=== PATIENT | female | born 1930 | race Caucasian/White ===

== ENCOUNTER 2018-05-14 09:06 | Inpatient (IN) | payer OTHER ==
[~2018-05-14] VITALS: Ht 165.1 cm; Wt 72.3 kg
[~2018-05-14 09:06] MED LIST: A/B OTIC15 ML; ACTOS PO; AMARYL4 MG PO; AMITRIPTYLINE PO; ASPIR 8181 MG PO; CLINDAMYCIN HC300 MG PO; GLIPIZIDE PO; IBUPROFEN400 MG PO; LAC PO; LEVAQUIN750 MG PO; LIPIZIDE PO; LISINOPRIL PO; LYRICA50 M1 PO; MECLIZINE25 M3 PO; METFORMIN HCL1000 MG PO; METFORMIN PO; METFORMIN500 MG PO; MOTRIN PO; ROBL PO; ZESTRIL5 MG PO; ZOCOR10 MG PO
[2018-05-14 09:57] LABS: BASOPHIL % 0.7 % (0-2); PLATELET COUNT 255 x10^3mcL (130-400)
[2018-05-14 09:59] LABS: RED CELL DISTRIBUTION WIDTH 14.8 % (11.5-14.5)
[2018-05-14 10:03] LABS: CALCIUM 9.3 mg/dL (8.5-10.1); CHLORIDE SERUM 104 mmol/L (98-107); CREATININE SERUM 1.1 mg/dL (0.6-1.0); GLUCOSE SERUM 179 mg/dL (74-106); POTASSIUM SERUM 4.6 mmol/L (3.5-5.1); SODIUM SERUM 137 mmol/L (136-145)
[2018-05-14 10:08] LABS: ALBUMIN 3.6 g/dL (3.4-5.0); ALKALINE PHOSPHATASE 98 U/L (46-116); ALT/SGPT 16 U/L (14-59); AST/SGOT 13 U/L (15-37); BILIRUBIN TOTAL 0.3 mg/dL (0.20-1.00); TOTAL PROTEIN, SERUM 7.8 g/dL (6.4-8.2)
[2018-05-14] MEDS ORDERED: GABAPENTIN100 M2 PO (10:50)
[2018-05-14] MEDS ORDERED: D3-50001 TAB PO (10:51)
[2018-05-14] MEDS ORDERED: LANTUS SOLOS100 U/M1 SQ (10:51)
[2018-05-14 14:03] VITALS: BP 130/55
[2018-05-14 17:30] VITALS: BP 143/53
[2018-05-14 22:27] VITALS: BP 127/90
[2018-05-15 05:49] VITALS: BP 115/45
[2018-05-15 07:19] LABS: CALCIUM 8.9 mg/dL (8.5-10.1); CARBON DIOXIDE 28.8 mmol/L (21-32); CHLORIDE SERUM 102 mmol/L (98-107); CREATININE SERUM 1.2 mg/dL (0.6-1.0); GLUCOSE SERUM 181 mg/dL (74-106); MAGNESIUM 2.1 mg/dL (1.8-2.4); POTASSIUM SERUM 4.6 mmol/L (3.5-5.1); SODIUM SERUM 137 mmol/L (136-145)
[2018-05-15 08:27] VITALS: BP 114/40
[2018-05-15 17:51] VITALS: BP 133/55
[2018-05-15 20:59] VITALS: BP 140/52
[2018-05-16 05:05] VITALS: BP 109/90
[2018-05-16 06:40] LABS: PLATELET COUNT 244 x10^3mcL (130-400); RED CELL DISTRIBUTION WIDTH 14.7 % (11.5-14.5)
[2018-05-16 06:50] LABS: CALCIUM 8.6 mg/dL (8.5-10.1); CARBON DIOXIDE 30.2 mmol/L (21-32); CHLORIDE SERUM 100 mmol/L (98-107); CREATININE SERUM 1.1 mg/dL (0.6-1.0); GLUCOSE SERUM 160 mg/dL (74-106); SODIUM SERUM 136 mmol/L (136-145)
[2018-05-16 09:12] VITALS: Ht 165.1 cm; Wt 72.3 kg
[2018-05-16 09:15] VITALS: BP 110/44
[2018-05-16 15:57] VITALS: BP 110/44
[2018-05-16 17:24] VITALS: BP 131/68
== END 2018-05-16 22:06 | DRG 605 ==
LOC: ED 09:06 → MU 12:32
PROVIDERS: Emergency Medicine; ADMIT Internal Medicine Pulmonary Disease
PROC: 0HQ1XZZ Repair Face Skin, External Approach (ICD-10-PCS; principal; 2018-05-14)
DX: S01.81XA Laceration without foreign body of other part of head, initial encounter (principal); I10 Essential (primary) hypertension; E03.9 Hypothyroidism, unspecified; E11.9 Type 2 diabetes mellitus without complications; R27.0 Ataxia, unspecified; G89.29 Other chronic pain; W01.190A Fall on same level from slipping, tripping and stumbling with subsequent striking against furniture, initial encounter; Z60.2 Problems related to living alone; Y93.89 Activity, other specified; Y92.038 Other place in apartment as the place of occurrence of the external cause; Y99.8 Other external cause status; Z88.1 Allergy status to other antibiotic agents; Z88.6 Allergy status to analgesic agent; Z88.5 Allergy status to narcotic agent
CPT/HCPCS: 82962; 90715; 97116-GP; 97530-GP; J1650; J2001; J2270; Q0092